=== PATIENT | male | born 1955 | race Caucasian/White ===

== ENCOUNTER 2016-08-26 19:46 | Inpatient (IN) | payer OTHER, BC ==
[~2016-08-26] VITALS: Ht 177.8 cm; Wt 104.0 kg
[2016-08-26 19:30] VITALS: BP_SYST 165
[2016-08-26 20:00] VITALS: BP_SYST 165
[2016-08-26 21:30] LABS: THYROID STIMULATING HORMONE 2.09 uIu/mL (0.34-4.82)
[2016-08-27] MEDS ORDERED: LINEZOLID 300 ML IV ONE (00:36)
[2016-08-27] MEDS ORDERED: AZTREONAM 1 GM VIAL ONE (00:37)
[2016-08-27] MEDS ORDERED: CARV25TA55 PO (00:50)
[2016-08-27] MEDS ORDERED: IPRATROPIUM BROM 0.5 MG/2.5 ML VIAL.NEB (ATROVENT) INH PRN (01:00)
[2016-08-27] MEDS ORDERED: HYDROmorphone 1 MG INJ. 1 MG/ML AMPUL IM PRN (01:00)
[2016-08-27] MEDS ORDERED: IPRATROPIUM BROM 0.5 MG/2.5 ML VIAL.NEB (ATROVENT) INH ONE (01:16)
[2016-08-27 01:52] VITALS: BP_SYST 163
[2016-08-27] MEDS ORDERED: cloNIDine HCL 0.1 MG TABLET PO PRN (02:15)
[2016-08-27 02:53] LABS: BILIRUBIN,URINE NEGATIVE (NEGATIVE); BLOOD, URINE NEGATIVE (NEGATIVE); CLARITY/URINE CLEAR (CLEAR); COLOR,URINE YELLOW (YELLOW); GLUCOSE,URINE NEGATIVE (NEGATIVE); KETONES,URINE NEGATIVE (NEGATIVE); LEUKOCYTE ESTERASE ,URINE NEGATIVE (NEGATIVE); NITRITE, URINE NEGATIVE (NEGATIVE); PROTEIN URINE TRACE (NEGATIVE)
[2016-08-27 02:58] LABS: BACTERIA,URINE RARE /HPF (None Seen); CALCIUM OXALATE CRYSTALS,UR 0-10 /HPF (None Seen); WBC,URINE 0-3 /HPF (0-3)
[2016-08-27 02:59] LABS: MUCUS,URINE None Seen /LPF (None Seen); RBC,URINE 0-3 /HPF (0-3); URIC ACID CRYSTALS,URINE 0-10 /HPF (None Seen)
[2016-08-27] MEDS: AZTREONAM 1 GM in NS 50 ML IV SCH ×3 (03:11→21:37)
[2016-08-27] MEDS: LINEZOLID 300 ML IV SCH ×2 (03:11→22:37)
[2016-08-27 04:00] VITALS: BP_SYST 146
[2016-08-27 08:00] VITALS: BP_SYST 152
[2016-08-27] MEDS: HYDROmorphone 1 MG INJ. 1 MG/ML AMPUL IVP PRN ×4 (08:32→21:35)
[2016-08-27] MEDS: AZITHROMYCIN 250 MG TABLET PO SCH (09:55)
[2016-08-27 12:00] VITALS: BP_SYST 145
[2016-08-27 13:05] LABS: BASOPHILS % (AUTO) 0.3 % (0.0-2.0); EOSINOPHILS # (AUTO) 0.2 K/uL (0.0-0.4); EOSINOPHILS % (AUTO) 2.5 % (0.0-4.0); HEMATOCRIT 46.5 % (36-54); HEMOGLOBIN 15.4 g/dL (14.0-18.0); LYMPHOCYTES # (AUTO) 1.6 K/uL (1.0-5.5); LYMPHOCYTES % (AUTO) 22.6 % (20.5-51.5); MEAN CORPUSCULAR HEMOGLOBIN 29 pg (27-31); MEAN CORPUSCULAR HGB CONC 33 % (32-36); MEAN CORPUSCULAR VOLUME 86 fL (79.0-98.0); MONOCYTES # (AUTO) 0.3 K/uL (0.0-1.0); MONOCYTES % (AUTO) 4.3 % (1.7-9.3); NEUTROPHILS # (AUTO) 4.8 K/uL (1.8-7.7); NEUTROPHILS % (AUTO) 70.3 % (40.0-70.0); PLATELET COUNT (AUTO) 241 K/uL (130-430); RED BLOOD CELL COUNT(AUTO) 5.41 MIL/uL (4.2-6.2); RED CELL DISTRIBUTION WIDTH 12.7 % (9.0-15.0); WHITE BLOOD COUNT (AUTO) 6.9 K/uL (4.8-10.8)
[2016-08-27 13:17] LABS: CALCIUM 8.7 mg/dL (8.4-11.0); CREATININE 1.14 mg/dL (0.55-1.30)
[2016-08-27] MEDS: ALBUTEROL SULFATE 0.083% 2.5 MG/3 ML VIAL.NEB INH SCH ×2 (14:01→19:35)
[2016-08-27] MEDS: IPRATROPIUM BROM 0.5 MG/2.5 ML VIAL.NEB (ATROVENT) INH SCH ×2 (14:03→19:34)
[2016-08-27 16:00] VITALS: BP_SYST 144
[2016-08-27] MEDS ORDERED: DEXTROSE 50% JECT 50 ML DISP.SYRIN IVP PRN (16:00)
[2016-08-27 17:25] LABS: CHOLESTEROL 176 mg/dL (<200); HDL CHOLESTEROL 26 mg/dL (>45); LDL CHOLESTEROL 123 mg/dL (<100); TRIGLYCERIDES 175 mg/dL (30-150)
[2016-08-27] MEDS: INSULIN REGULAR, HUMAN 100 UNITS/ML, 10 ML VIAL (novoLIN R) SUBCUT PRN (17:59)
[2016-08-27 19:40] VITALS: BP_SYST 141
[2016-08-28] VITALS (7 sets, daily range): BP systolic 142–159
[2016-08-28] MEDS: ALBUTEROL SULFATE 0.083% 2.5 MG/3 ML VIAL.NEB INH SCH ×4 (00:18→19:37)
[2016-08-28] MEDS: IPRATROPIUM BROM 0.5 MG/2.5 ML VIAL.NEB (ATROVENT) INH SCH ×4 (00:19→19:37)
[2016-08-28] MEDS: INSULIN REGULAR, HUMAN 100 UNITS/ML, 10 ML VIAL (novoLIN R) SUBCUT PRN ×5 (00:26→23:08)
[2016-08-28] MEDS: HYDROmorphone 1 MG INJ. 1 MG/ML AMPUL IVP PRN ×6 (04:03→23:04)
[2016-08-28] MEDS: AZTREONAM 1 GM in NS 50 ML IV SCH ×3 (05:52→23:01)
[2016-08-28] MEDS: AZITHROMYCIN 250 MG TABLET PO SCH (08:42)
[2016-08-28] MEDS: LINEZOLID 300 ML IV SCH ×2 (08:43→21:21)
[2016-08-29] VITALS: BP_SYST 141
[2016-08-29] MEDS: IPRATROPIUM BROM 0.5 MG/2.5 ML VIAL.NEB (ATROVENT) INH SCH ×4 (01:32→20:19)
[2016-08-29] MEDS: ALBUTEROL SULFATE 0.083% 2.5 MG/3 ML VIAL.NEB INH SCH ×4 (01:32→20:19)
[2016-08-29 04:50] VITALS: BP_SYST 147
[2016-08-29] MEDS: HYDROmorphone 1 MG INJ. 1 MG/ML AMPUL IVP PRN ×5 (05:04→22:57)
[2016-08-29] MEDS: AZTREONAM 1 GM in NS 50 ML IV SCH ×3 (05:05→22:57)
[2016-08-29] MEDS: INSULIN REGULAR, HUMAN 100 UNITS/ML, 10 ML VIAL (novoLIN R) SUBCUT PRN ×3 (05:13→23:04)
[2016-08-29 08:00] VITALS: BP_SYST 151
[2016-08-29] MEDS: AZITHROMYCIN 250 MG TABLET PO SCH (09:08)
[2016-08-29] MEDS: LINEZOLID 300 ML IV SCH ×2 (09:08→20:43)
[2016-08-29] MEDS ORDERED: metFORMIN HCL 500 MG TABLET PO ONE (12:45)
[2016-08-29] MEDS ORDERED: ATORVASTATIN 20 MG TABLET PO ONE (12:45)
[2016-08-29] MEDS ORDERED: LORazepam 2 MG/ML VIAL IVP ONE (16:30)
[2016-08-29] MEDS ORDERED: LORazepam 2 MG/ML VIAL ONE (16:33)
[2016-08-29] MEDS: metFORMIN HCL 500 MG TABLET PO SCH (18:04)
[2016-08-29 20:00] VITALS: BP_SYST 144
[2016-08-30 00:22] VITALS: BP_SYST 131
[2016-08-30] MEDS: ALBUTEROL SULFATE 0.083% 2.5 MG/3 ML VIAL.NEB INH SCH ×2 (01:24→07:57)
[2016-08-30] MEDS: IPRATROPIUM BROM 0.5 MG/2.5 ML VIAL.NEB (ATROVENT) INH SCH ×2 (01:24→07:57)
[2016-08-30 04:22] VITALS: BP_SYST 130
[2016-08-30] MEDS: HYDROmorphone 1 MG INJ. 1 MG/ML AMPUL IVP PRN ×2 (04:25→08:33)
[2016-08-30] MEDS: AZTREONAM 1 GM in NS 50 ML IV SCH (05:17)
[2016-08-30] MEDS: INSULIN REGULAR, HUMAN 100 UNITS/ML, 10 ML VIAL (novoLIN R) SUBCUT PRN ×2 (05:22→12:07)
[2016-08-30 08:25] VITALS: BP_SYST 158
[2016-08-30] MEDS: metFORMIN HCL 500 MG TABLET PO SCH (08:32)
[2016-08-30] MEDS: AZITHROMYCIN 250 MG TABLET PO SCH (08:33)
[2016-08-30] MEDS: LINEZOLID 300 ML IV SCH (08:33)
[2016-08-30] MEDS ORDERED: ATORVASTATIN 20 MG TABLET PO SCH (09:00)
[2016-08-30 12:23] VITALS: BP_SYST 148
[2016-08-30] MEDS ORDERED: LIP20 PO (12:31)
[2016-08-30] MEDS ORDERED: GLU500 (12:31)
[2016-08-30 12:35] VITALS: BP_SYST 148
== END 2016-08-30 12:50 | disposition home or self-care (01) | DRG 191 ==
LOC: SMU 19:46
PROVIDERS: ADMIT Internal Medicine Infectious Disease; ATTEND Internal Medicine Infectious Disease
DX: J44.0 Chronic obstructive pulmonary disease with (acute) lower respiratory infection (principal); I13.0 Hypertensive heart and chronic kidney disease with heart failure and stage 1 through stage 4 chronic kidney disease, or unspecified chronic kidney disease; J44.1 Chronic obstructive pulmonary disease with (acute) exacerbation; J20.9 Acute bronchitis, unspecified; E78.5 Hyperlipidemia, unspecified; F17.210 Nicotine dependence, cigarettes, uncomplicated; E11.65 Type 2 diabetes mellitus with hyperglycemia; E11.22 Type 2 diabetes mellitus with diabetic chronic kidney disease; I50.9 Heart failure, unspecified; I89.0 Lymphedema, not elsewhere classified; N18.3 Chronic kidney disease, stage 3 (moderate); Z80.1 Family history of malignant neoplasm of trachea, bronchus and lung; Z82.49 Family history of ischemic heart disease and other diseases of the circulatory system; Z87.442 Personal history of urinary calculi; Z79.84 Long term (current) use of oral hypoglycemic drugs; Z90.5 Acquired absence of kidney; Z90.89 Acquired absence of other organs; Z88.0 Allergy status to penicillin; Z88.8 Allergy status to other drugs, medicaments and biological substances; Z86.711 Personal history of pulmonary embolism; Z86.718 Personal history of other venous thrombosis and embolism
CPT/HCPCS: 36415; 71010; 71020-TC; 71250-TC; 72146; 80048; 80061; 81000-TC; 82962; 83036; 83690-TC; 84443-TC; 85025; 86803; 87040-TC; 87070-TC; 87086; 87205-TC; 93970; 94640; 94760; J1170; J1815; J2020; J2060; J3490; J7040; Q0144

== ENCOUNTER 2023-08-28 15:43 | Inpatient (IN) | payer BC, MEDICARE, OTHER ==
[~2023-08-28] VITALS: Ht 177.8 cm; Wt 96.2 kg
[~2023-08-28 15:43] MED LIST: CARV25TA55 PO; GLU500; LIP20 PO
[2023-08-28 15:45] VITALS: BP_SYST 207; PULSE 95; RESP 18; TEMP 98.9; O2SAT 99
[2023-08-28 17:08] LABS: EOSINOPHILS # (AUTO) 0.2 K/uL (0.0-0.4); MEAN CORPUSCULAR HGB CONC 34 % (32-36); WHITE BLOOD COUNT (AUTO) 9.8 K/uL (4.8-10.8)
[2023-08-28 17:13] LABS: BASOPHILS # (AUTO) 0.1 K/uL (0.0-0.2); BASOPHILS % (AUTO) 0.6 % (0.0-2.0); EOSINOPHILS % (AUTO) 1.6 % (0.0-4.0); HEMATOCRIT 52.1 % (36-54); HEMOGLOBIN 17.9 g/dL (14.0-18.0); LYMPHOCYTES # (AUTO) 1.9 K/uL (1.0-5.5); LYMPHOCYTES % (AUTO) 19.7 % (20.5-51.5); MEAN CORPUSCULAR HEMOGLOBIN 29 pg (27-31); MEAN CORPUSCULAR VOLUME 83 fL (79.0-98.0); MONOCYTES # (AUTO) 0.6 K/uL (0.0-1.0); MONOCYTES % (AUTO) 6.3 % (1.7-9.3); NEUTROPHILS # (AUTO) 7.1 K/uL (1.8-7.7); NEUTROPHILS % (AUTO) 71.8 % (40.0-70.0); PLATELET COUNT (AUTO) 234 K/uL (130-430); RED BLOOD CELL COUNT(AUTO) 6.26 MIL/uL (4.2-6.2); RED CELL DISTRIBUTION WIDTH 14.5 % (9.0-15.0)
[2023-08-28 17:28] LABS: ANION GAP 8 (5-15); CALCIUM 8.8 mg/dL (8.4-11.0); CARBON DIOXIDE 27 mmol/L (23-29); CHLORIDE 103 mmol/L (98-107); GFR AFRICAN AMERICAN 96 mL/min (>90); GLUCOSE 187 mg/dL (74-106); LIPASE 169 U/L (16-77); POTASSIUM 3.6 mmol/L (3.5-5.1); SODIUM SERUM 138 mmol/L (136-145); UREA NITROGEN, BLOOD 9 mg/dL (8-21)
[2023-08-28] MEDS ORDERED: METOCLOPRAMIDE HCL 10 MG/2 ML VIAL ONE (17:28)
[2023-08-28 17:30] LABS: GFR NON AFRICAN-AMERICAN 79 mL/min (>90)
[2023-08-28] MEDS: NACL 0.9% 1,000 ML IV ONE (17:33)
[2023-08-28] MEDS: METOCLOPRAMIDE HCL 10 MG/2 ML VIAL IVP ONE (17:35)
[2023-08-28] MEDS: KETOROLAC TROMETHAMINE 30 MG VIAL IVP ONE (17:35)
[2023-08-28] MEDS: DIPHENHYDRAMINE INJ 50 MG/ML VIAL IVP ONE (17:36)
[2023-08-28] MEDS ORDERED: DAPA10TA PO (18:36)
[2023-08-28] MEDS ORDERED: OXYC30TA2 PO (18:36)
[2023-08-28] MEDS ORDERED: CYCL10TA25 PO (18:36)
[2023-08-28] MEDS ORDERED: LEVO750T64 PO (18:36)
[2023-08-28] MEDS ORDERED: [UNRECOGNIZED DRUG - CODE] PO (18:36)
[2023-08-28] MEDS ORDERED: SEMA2PEN SUBCUT (18:36)
[2023-08-28] MEDS ORDERED: ELVI1TAB3 PO (18:36)
[2023-08-28] MEDS ORDERED: NIRM1TAB7 PO (18:37)
[2023-08-28] MEDS ORDERED: FURO40TA5 PO (18:37)
[2023-08-28] MEDS ORDERED: ICOS1CAP PO (18:37)
[2023-08-28] MEDS ORDERED: CILO100T3 PO (18:37)
[2023-08-28] MEDS ORDERED: PANT40TA45 PO (18:37)
[2023-08-28] MEDS ORDERED: TEST200V32 IM (18:37)
[2023-08-28] MEDS ORDERED: PRAV40TA63 PO (18:37)
[2023-08-28] MEDS ORDERED: METF-381 PO (18:37)
[2023-08-28] MEDS ORDERED: HYDR25TA4 PO (18:37)
[2023-08-28] MEDS ORDERED: LOSA100T24 PO (18:37)
[2023-08-28 22:10] VITALS: BP_SYST 160; PULSE 70; RESP 18; TEMP 97.4; O2SAT 95
[2023-08-28] MEDS ORDERED: ONDANSETRON HCL 4 MG/2 ML VIAL IVP PRN (22:45)
[2023-08-28] MEDS ORDERED: DEXTROSE 50% JECT 50 ML DISP.SYRIN IVP PRN (22:45)
[2023-08-28] MEDS ORDERED: TEMAZEPAM 15 MG CAPSULE PO PRN (22:45)
[2023-08-28] MEDS: GOLYTELY / COLYTE SOLUTION 4 LITERS PO ONE (23:03)
[2023-08-28] MEDS: MORPHINE 4 MG INJ. 4 MG/ML VIAL IVP PRN (23:44)
[2023-08-29 00:30] VITALS: BP_SYST 154; BP_SYST 160; PULSE 70; RESP 18; TEMP 97.4; TEMP 98.5; O2SAT 94
[2023-08-29 05:28] LABS: BASOPHILS # (AUTO) 0.1 K/uL (0.0-0.2); BASOPHILS % (AUTO) 0.6 % (0.0-2.0); EOSINOPHILS # (AUTO) 0.3 K/uL (0.0-0.4); EOSINOPHILS % (AUTO) 3.5 % (0.0-4.0); HEMATOCRIT 51.4 % (36-54); HEMOGLOBIN 17.3 g/dL (14.0-18.0); LYMPHOCYTES # (AUTO) 2.3 K/uL (1.0-5.5); LYMPHOCYTES % (AUTO) 25.3 % (20.5-51.5); MEAN CORPUSCULAR HEMOGLOBIN 28 pg (27-31); MEAN CORPUSCULAR HGB CONC 34 % (32-36); MEAN CORPUSCULAR VOLUME 84 fL (79.0-98.0); MONOCYTES # (AUTO) 0.7 K/uL (0.0-1.0); MONOCYTES % (AUTO) 7.9 % (1.7-9.3); NEUTROPHILS # (AUTO) 5.7 K/uL (1.8-7.7); PLATELET COUNT (AUTO) 244 K/uL (130-430); RED BLOOD CELL COUNT(AUTO) 6.13 MIL/uL (4.2-6.2); RED CELL DISTRIBUTION WIDTH 14.5 % (9.0-15.0)
[2023-08-29 05:30] LABS: ALBUMIN 2.9 g/dL (3.4-4.8); CALCIUM 8.7 mg/dL (8.4-11.0); CREATININE 0.88 mg/dL (0.55-1.30); POTASSIUM 3.3 mmol/L (3.5-5.1)
[2023-08-29] MEDS: INSULIN REGULAR, HUMAN 100 UNITS/ML, 3 ML VIAL (humuLIN R) SUBCUT PRN (06:27)
[2023-08-29 07:53] LABS: NEUTROPHILS % (AUTO) 62.7 % (40.0-70.0)
[2023-08-29 08:05] VITALS: BP_SYST 158; PULSE 78; RESP 19; TEMP 97.7; O2SAT 98; O2SAT 99
[2023-08-29] MEDS: metFORMIN HCL 500 MG TABLET PO SCH (08:29)
[2023-08-29] MEDS: CILOSTAZOL 50 MG TABLET (PLETAL) PO SCH (08:29)
[2023-08-29] MEDS: HYDROCHLOROTHIAZIDE 25 MG TABLET (HCTZ) PO SCH (08:30)
[2023-08-29] MEDS: CYCLOBENZAPRINE HCL 10 MG TABLET (FLEXERIL) PO SCH (08:30)
[2023-08-29] MEDS: ATORVASTATIN 20 MG TABLET PO SCH (08:31)
[2023-08-29] MEDS: LOSARTAN POTASSIUM 50 MG TABLET (COZAAR) PO SCH (08:31)
[2023-08-29] MEDS: FUROSEMIDE 40 MG TABLET PO SCH (08:31)
[2023-08-29] MEDS ORDERED: CARVEDILOL 25 MG TABLET (COREG) PO SCH (09:00)
[2023-08-29] MEDS ORDERED: NON-FORMULARY MEDICATION (Testosterone Cypionate 200 MG) IM SCH (09:00)
[2023-08-29] MEDS ORDERED: MORPHINE SULFATE 100 MG TABLET.SA PO SCH (09:00)
[2023-08-29] MEDS ORDERED: NON-FORMULARY MEDICATION (Pravastatin Sodium 40 MG) PO SCH (09:00)
[2023-08-29] MEDS ORDERED: [UNRECOGNIZED DRUG - OTHER] PO SCH (09:00)
[2023-08-29] MEDS ORDERED: NON-FORMULARY MEDICATION (Metformin Hcl 1,000 MG) PO SCH (09:00)
[2023-08-29 12:39] VITALS: BP_SYST 158; PULSE 77; RESP 20; TEMP 98.5; O2SAT 98
[2023-08-29] MEDS: POTASSIUM CHLORIDE 20 MEQ TABLET.ER PO ONE (15:41)
[2023-08-29 17:01] VITALS: BP_SYST 157; PULSE 78; RESP 19; TEMP 98.5; O2SAT 99
[2023-08-29] MEDS: oxyCODONE HCL 5 MG TABLET PO PRN (18:29)
[2023-08-29 20:00] VITALS: BP_SYST 140; PULSE 91; RESP 18; TEMP 98.4; O2SAT 94
[2023-08-30] VITALS: BP_SYST 148; PULSE 87; RESP 18; TEMP 98.2; O2SAT 95
[2023-08-30 06:54] LABS: BASOPHILS % (AUTO) 0.4 % (0.0-2.0); EOSINOPHILS # (AUTO) 0.3 K/uL (0.0-0.4); EOSINOPHILS % (AUTO) 4.1 % (0.0-4.0); HEMATOCRIT 51.2 % (36-54); HEMOGLOBIN 17.4 g/dL (14.0-18.0); LYMPHOCYTES # (AUTO) 1.8 K/uL (1.0-5.5); LYMPHOCYTES % (AUTO) 21.6 % (20.5-51.5); MEAN CORPUSCULAR HEMOGLOBIN 28 pg (27-31); MEAN CORPUSCULAR HGB CONC 34 % (32-36); MEAN CORPUSCULAR VOLUME 83 fL (79.0-98.0); MONOCYTES # (AUTO) 0.6 K/uL (0.0-1.0); MONOCYTES % (AUTO) 6.9 % (1.7-9.3); NEUTROPHILS # (AUTO) 5.5 K/uL (1.8-7.7); PLATELET COUNT (AUTO) 234 K/uL (130-430); RED BLOOD CELL COUNT(AUTO) 6.13 MIL/uL (4.2-6.2); RED CELL DISTRIBUTION WIDTH 14.5 % (9.0-15.0); WHITE BLOOD COUNT (AUTO) 8.2 K/uL (4.8-10.8)
[2023-08-30 07:06] LABS: ALBUMIN 2.7 g/dL (3.4-4.8); CALCIUM 8.6 mg/dL (8.4-11.0); CREATININE 0.97 mg/dL (0.55-1.30); POTASSIUM 3.4 mmol/L (3.5-5.1); TOTAL BILIRUBIN 0.9 mg/dL (0.0-1.0); TOTAL PROTEIN, SERUM 6.7 g/dL (6.4-8.3)
[2023-08-30 07:50] VITALS: BP_SYST 171; PULSE 72; RESP 18; TEMP 98.4; O2SAT 97
[2023-08-30] MEDS: MORPHINE 100 MG PO SCH (09:00)
[2023-08-30] MEDS: [UNRECOGNIZED DRUG - OTHER] PO SCH (09:00)
[2023-08-30] MEDS: OMEGA-3/DHA/EPA/FISH OIL 1 GM CAPSULE PO SCH (09:24)
[2023-08-30] MEDS: PANTOPRAZOLE SODIUM 40 MG TAB PO SCH (09:24)
[2023-08-30] MEDS: EMPAGLIFLOZIN 10 MG TABLET PO SCH (09:34)
[2023-08-30] MEDS: LR 1,000 ML IV SCH (11:53)
[2023-08-30] MEDS ORDERED: ACETAMINOPHEN 500 MG TABLET PO PRN (12:00)
[2023-08-30] MEDS: ACETAMINOPHEN 500 MG TABLET ONE (12:36)
[2023-08-30 16:35] VITALS: BP_SYST 143; PULSE 72; RESP 18; TEMP 97.1; O2SAT 95
[2023-08-30 20:00] VITALS: BP_SYST 139; PULSE 84; RESP 17; TEMP 97.8; O2SAT 94
[2023-08-31] VITALS: BP_SYST 145; PULSE 79; RESP 16; TEMP 98; O2SAT 95
[2023-08-31 06:43] LABS: ALBUMIN 2.9 g/dL (3.4-4.8); CALCIUM 8.8 mg/dL (8.4-11.0); CREATININE 1.14 mg/dL (0.55-1.30); POTASSIUM 3.3 mmol/L (3.5-5.1)
[2023-08-31 08:05] LABS: LYMPHOCYTES # (AUTO) 2.1 K/uL (1.0-5.5); MONOCYTES # (AUTO) 0.6 K/uL (0.0-1.0)
[2023-08-31 08:30] LABS: BASOPHILS # (AUTO) 0.1 K/uL (0.0-0.2); BASOPHILS % (AUTO) 0.9 % (0.0-2.0); EOSINOPHILS # (AUTO) 0.4 K/uL (0.0-0.4); HEMATOCRIT 52.9 % (36-54); HEMOGLOBIN 18.2 g/dL (14.0-18.0); LYMPHOCYTES % (AUTO) 24.9 % (20.5-51.5); MEAN CORPUSCULAR HEMOGLOBIN 29 pg (27-31); MEAN CORPUSCULAR HGB CONC 34 % (32-36); MEAN CORPUSCULAR VOLUME 84 fL (79.0-98.0); MONOCYTES % (AUTO) 7.3 % (1.7-9.3); NEUTROPHILS # (AUTO) 5.3 K/uL (1.8-7.7); NEUTROPHILS % (AUTO) 61.9 % (40.0-70.0); PLATELET COUNT (AUTO) 247 K/uL (130-430); RED BLOOD CELL COUNT(AUTO) 6.33 MIL/uL (4.2-6.2); RED CELL DISTRIBUTION WIDTH 14.4 % (9.0-15.0); WHITE BLOOD COUNT (AUTO) 8.6 K/uL (4.8-10.8)
[2023-08-31 08:38] VITALS: BP_SYST 135; PULSE 105; RESP 18; TEMP 97; O2SAT 97
[2023-08-31 12:34] VITALS: BP_SYST 137; PULSE 96; RESP 18; TEMP 97
[2023-08-31 12:36] VITALS: BP_SYST 137; PULSE 96; RESP 18; TEMP 97; O2SAT 97
[2023-09-02 03:12] LABS: HEPATITIS A AB, IgM Negative (Negative); HEPATITIS B CORE AB, IgM Negative (Negative); HEPATITIS B SURFACE AG Negative (Negative); HEPATITIS C VIRUS AB Non Reactive (Non Reactive)
== END 2023-08-31 13:00 | disposition home or self-care (01) | DRG 391 ==
LOC: SED 15:43 → STU 21:00 → SMU 08-30 16:35
PROVIDERS: ADMIT Internal Medicine; ATTEND Internal Medicine
DX: K59.03 Drug induced constipation (principal); K85.30 Drug induced acute pancreatitis without necrosis or infection; I10 Essential (primary) hypertension; K76.0 Fatty (change of) liver, not elsewhere classified; E11.9 Type 2 diabetes mellitus without complications; T40.2X5A Adverse effect of other opioids, initial encounter; G89.4 Chronic pain syndrome; Z90.5 Acquired absence of kidney; Z87.442 Personal history of urinary calculi; Y92.89 Other specified places as the place of occurrence of the external cause; Z88.0 Allergy status to penicillin; Z88.2 Allergy status to sulfonamides; Z88.1 Allergy status to other antibiotic agents; Z79.84 Long term (current) use of oral hypoglycemic drugs; Z79.899 Other long term (current) drug therapy
CPT/HCPCS: 36415; 71045; 74018; 74181; 80048; 80053; 80074; 82948; 83037; 83690; 83880; 84478; 84484; 85025; 87081; 93005; 99285; G0378; J1200; J1815; J1885; J2270; J2765